=== PATIENT | male | born 1935 | race Caucasian/White ===

== ENCOUNTER 2016-12-09 16:28 | Inpatient (IN) | payer OTHER ==
[~2016-12-09] VITALS: Ht 165.1 cm; Wt 69.0 kg
--- NOTE | ~2016-12-09 | EKG ---
[address] [address] ELECTROCARDIOGRAM REPORT Name: TODD TINOCO Room #: 445-P ADM IN M.R.#: [id number] Admission: 12/09/16 Attend Phys: Tomeka West Discharge: Date of : 39 Report #: [id number] THIS REPORT FOR: //name// [facility] Test Date: 2016-12-10 Test Time: 06:36:24 Pat Name: TODD TINOCO Department: Room: 445 P Gender: M Fuse Cutter: jensen : 1935 Requested By: Yara Martinez Order Number: [id number] MD: Quinton Khoury Measurements Intervals [place] Rate: 88 P: -24 ID: [id number] QRS: 76 QRSD: 105 T: 69 QT: 335 QTc: 406 Interpretive Statements Sinus rhythm with frequent PACs. Compared to ECG 11/18/2016 06:04:40 No significant changes Electronically Signed On 12-10-2016 15:57:54 CDT by Quinton Khoury [email or web address] <ELECTRONICALLY SIGNED> By: Quinton Khoury MD 12/10/16 1557 5 5 Quinton Khoury MD /PAMELA
--- NOTE | ~2016-12-09 | HC ---
[facility] [address] [place] [place] [address] CONSULTATION Name: TODD TINOCO Room #: 445-P [facility] IN M.R.#: [id number] Admission: 12/09/16 Attend Phys: Tomeka West Discharge: Date of : 39 Report #: [id number] THIS REPORT FOR: //name// CC: Tomeka Hinojosa DATE OF SERVICE: 12/10/2016 REASON FOR CONSULTATION: Acute kidney injury, hyperkalemia. HISTORY OF PRESENT ILLNESS: This is a 81-year-old male who has had several very lengthy hospitalizations here at [facility]. The first was in 07/2016 and 08/2016. During that time, the patient had with a complicated abdominal surgery, developed acute kidney injury, required dialysis for a period of time. He eventually improved from that. He was back in the hospital in early 11/2016, about a month ago. During that time, he had worsening respiratory status. During this time last year, he had an ileostomy placed. He has currently had liquid output from that. He has had a hard time keeping up with food and fluid intake. He says his appetite has been poor. He had a PEG tube in place, but that has not been used. He has not noticed peripheral edema. He voids urine normally, but says his urine output is way down, voiding only occasionally, not nearly his normal amount. He still has a tracheostomy in place from his July hospitalizations. His other complain is of cough and mucus production around that ileostomy. Laboratory review shows on admission, sodium 128, potassium 5.5, BUN 36, creatinine 2.5, bicarbonate 16, white count 11.2, hemoglobin 7.5, hematocrit 22.9, platelets 311,000. MEDICATIONS ON ADMISSION: Aspirin 81 mg daily, Pulmicort, Tums, citalopram 20 mg daily p.r.n., Aranesp 100 mcg weekly to generate more blood, Pepcid 20 mg b.i.d., iron 325 mg daily, finasteride 5 mg daily, folic acid 1 mg daily, hydrocodone p.r.n., insulin, DuoNeb inhaler, levothyroxine 0.112 mg daily, p.r.n. loperamide, loratadine 10 mg daily, midodrine 10 mg t.i.d., Asmanex inhaler, nitrofurantoin 100 mg b.i.d. recently started for urinary tract infection, pantoprazole 40 mg daily (I am not sure that he is on 2 proton pump inhibitors) Requip 0.25 mg daily, sulfasalazine 1 g t.i.d., tamsulosin 0.4 mg b.i.d., tramadol p.r.n. ALLERGIES: SIMVASTATIN, AMBIEN. FAMILY HISTORY: Noncontributory. SOCIAL HISTORY: The patient has been staying in a rehab center down in [place], [place] since he was discharged from here in November. He is and accompanied by his at this time. They live in [place]. Son is also [facility] [address] [place] [address] CONSULTATION Name: TODD TINOCO Room #: 445-P [facility] IN M.R.#: [id number] Admission: 12/09/16 Attend Phys: Tomeka West Discharge: Date of : 39 Report #: [id number] present at this time. REVIEW OF SYSTEMS: Basically is per the history of present illness. Low intake generally. He thinks his weight has been stable. He has dyspnea, still has cough with some sputum production, although has been mostly clear. He is unaware of fevers, chills or sweats. He has not noticed any edema. Again, his urine output has been down. PHYSICAL EXAMINATION: GENERAL: Chronically ill-appearing male. He is sitting up in a chair at this time. VITAL SIGNS: Blood pressure 101/59, heart rate 80, temperature 36.6, oxygen saturation 95%. HEENT: Shows pupils are equal and reactive. Sclerae nonicteric. Oral mucosa is dry. NECK: Tracheostomy is in place but capped. CHEST: Shows decreased breath sounds bilaterally in the bases. No rales or wheezes. HEART: Has a regular rate and rhythm with a grade 2 systolic murmur. ABDOMEN: Has a few bowel sounds present. Soft, generally nontender. EXTREMITIES: He has an ileostomy in place draining quite a large amount of clear brown liquid. He shows no peripheral edema. There has been significant muscle atrophy developed. LABORATORY: As noted above. ASSESSMENT: 1. Acute kidney injury. This is slightly worse than it had been during his most recent hospitalization. By the time he left, he was down to creatinine 1.5. He had been high enough to need dialysis during his prior hospitalizations, but again, he recovered rather remarkably from that. He no doubt is volume deplete. We will bump his IV fluids up watching his volume status. No intention of dialyzing him at this time. 2. Hyperkalemia, correcting. Again, I will do better with saline infusions. 3. Hyponatremia. He will also respond to the normal saline with correction of that. 4. Hypomagnesemia, replacing. 5. Recent suggest of urinary tract infection. He has been on nitrofurantoin. We will recheck. 6. Chronic respiratory failure. Actually breathing fairly well, question if we can get the tracheostomy out. 7. Ileostomy with high output. He may need further treatment for that to slow that down. In the meantime, we will give more fluids IV. 8. Metabolic acidosis with low anion gap. He could use low bicarbonate to help replace since he has his high ostomy output. We will get him . [facility] [address] [place] [address] CONSULTATION Name: TODD TINOCO Room #: 445-P [facility] IN Sandra#: [id number] Admission: 12/09/16 Attend Phys: Tomeka West Discharge: Date of : 37 Report #: [id number] PLAN: 1. Increase IV normal saline to 125 mL per hour. 2. Check urine studies. 3. Repeat labs in the morning. 4. administration of a bicarbonate which we will give orally. 5. We will follow along the care of this pleasant patient. <ELECTRONICALLY SIGNED> By: Rakesh Hutson MD 12/11/16 0842 1253 [id number] Rakesh Huston MD /nt
[~2016-12-09 16:28] MED LIST: ALLOPURINOL 10100 M1 PO; ANTACID650 MG PO; ARANESP 10100 MCG/0. SQ; ASPIR 8181 M1 PO; AZACTAM 1 GM VIA1 G1 IVPB; CALCIUM 250+D1 EACH PO; DUONEB 2.5-0.5 M3 ML INH; FLOMAX0.4 MG PO; FOLIC ACID1 MG PO; HUMALOG100 UNIT/1 SUBQ; HUMALOG100 UNIT/2 SQ; HYDROCODON-ACE1 EAC7 PO; ISOSORBIDE MONO30 M1 PO; LANTUS100 UNIT/M SUBQ; LASIX 20 MG TAB20 MG PO; LEVOTHYROXIN0.112 M1 PO; LOPRESSOR25 PO; METRONIDAZOLE500 M5 IVPB; MIDODRINE HCL 55 M1 PO; MULTIVITAMINS1 EAC7 PO; NEURONTIN 300300 M1 PO; NOVAFERRUM 5050 MG PO; NOVOLIN N100 UNIT/3 SUBQ; ONDANSETRON HCL4 M2 PO; PEPCID20 MG PO; PERIDEX 0.12%473 M1 MUCOUS MEM; POLY-IRON 1501 EACH PO; PROSCAR 5MG TABL5 MG PO; PROTONIX40 M1 PO; PULMICORT0.5 MG/21 INH; REQUIP 0.25 M0.25 MG PO; SEROQUEL 25 MG25 M1 PER TUBE; SULFAZINE500 M1 PO; SUPER B COMPLE150 MG PO; TUMS PO; TYLENOL325 MG PO; UROCIT-K10 ME1 PO; VANCO 1 GR1 GM/250 M IVPB; VISTARIL 25 MG25 M1 PO; VITAMIN B-1100 M1 PO; VITAMIN D250000 UNIT PO; ZESTRIL2.5 MG PO
[2016-12-09 19:10] VITALS: BP 127/68
[2016-12-09] MEDS ORDERED: CELEXA20 MG PO (20:17)
[2016-12-09] MEDS ORDERED: IRON325 PO (20:18)
[2016-12-09] MEDS ORDERED: PEPCID20 MG PO (20:18)
[2016-12-09] MEDS ORDERED: LOPERAMIDE 2 MG2 M1 PO (20:20)
[2016-12-09] MEDS ORDERED: CLARITIN10 MG PO (20:21)
[2016-12-09] MEDS ORDERED: ASMANEX220 MC1 INH (20:22)
[2016-12-09] MEDS ORDERED: NITROFURANTOIN100 MG PO (20:22)
[2016-12-09] MEDS ORDERED: HUMALOG100 UNIT/2 SQ ×2 (20:24)
[2016-12-09] MEDS ORDERED: POLY-IRON 1501 EACH PO (20:28)
[2016-12-09] MEDS ORDERED: TRAMADOL 50 MG50 MG PO (20:30)
[2016-12-09] MEDS ORDERED: TUSSIN CF COUG118 M2 PO (20:30)
[2016-12-09 20:48] LABS: HEMATOCRIT 22.9 % (42.0-52.0); HEMOGLOBIN 7.5 gm/dL (14.0-18.0); MCH 28.8 pg (26.0-34.0); MCHC 32.8 g/dL (28.0-37.0); MCV 87.6 fL (80.0-100.0); PLATELET COUNT 311 thou/uL (150-400); RBC 2.61 mil/uL (4.50-6.00); RDW 19.6 % (10.5-14.5); WBC 11.2 thou/uL (4.0-11.0)
[2016-12-09 20:49] LABS: MANUAL DIFF YES
[2016-12-09 20:58] LABS: ANION GAP 9 mmol/L (7-16); BUN 36 mg/dL (7-18); CALCIUM 8.1 mg/dL (8.5-10.1); CHLORIDE 103 mmol/L (98-107); CO2 16 mmol/L (21-32); CREATININE 2.5 mg/dL (0.6-1.3); GLUCOSE 108 mg/dL (70-99); POTASSIUM 5.5 mmol/L (3.5-5.1); SODIUM 128 mmol/L (136-145)
[2016-12-09 21:05] LABS: ABSOLUTE NEUTROPHILS 9.1 thou/uL (1.4-8.2); ANISOCYTOSIS 1+; TOTAL CELL COUNT 100
[2016-12-09 21:12] LABS: ALBUMIN 2.5 g/dL (3.4-5.0); ALKALINE PHOSPHATASE 80 U/L (46-116); NT-PRO BRAIN NAT PEPTIDE 4950 pg/mL (<300); SGOT 12 U/L (15-37); SGPT 9 U/L (30-65); TOTAL BILIRUBIN 0.4 mg/dL (<0.1-1.0); TOTAL PROTEIN 6.7 g/dL (6.4-8.2); TROPONIN-I < 0.04 ng/mL (<0.04-0.07)
[2016-12-10 00:15] VITALS: BP 130/64
[2016-12-10] MEDS ORDERED: ARANESP 10100 MCG/0. IJ (01:25)
[2016-12-10 05:09] VITALS: BP 114/63
[2016-12-10 05:43] LABS: HEMATOCRIT 22.1 % (42.0-52.0); HEMOGLOBIN 7.1 gm/dL (14.0-18.0); MCH 28.2 pg (26.0-34.0); MCHC 32.1 g/dL (28.0-37.0); MCV 87.9 fL (80.0-100.0); PLATELET COUNT 287 thou/uL (150-400); RBC 2.51 mil/uL (4.50-6.00); RDW 19.8 % (10.5-14.5); WBC 11.5 thou/uL (4.0-11.0)
[2016-12-10 05:58] LABS: MANUAL DIFF YES
[2016-12-10 06:01] LABS: ALBUMIN 2.2 g/dL (3.4-5.0); CREATININE 2.7 mg/dL (0.6-1.3); INR 1.2; POTASSIUM 5.2 mmol/L (3.5-5.1); PROTIME 12.4 Seconds (9.3-11.4)
[2016-12-10 06:33] LABS: TOTAL BILIRUBIN 0.4 mg/dL (<0.1-1.0); TOTAL PROTEIN 6.5 g/dL (6.4-8.2)
[2016-12-10 08:37] LABS: ABSOLUTE NEUTROPHILS 10.1 thou/uL (1.4-8.2); ANISOCYTOSIS 2+; PLATELET ESTIMATE NORMAL; TOTAL CELL COUNT 100
[2016-12-10 08:38] LABS: MICROCYTES 1+; POLYCHROMASIA 1+
[2016-12-10 08:56] VITALS: BP 107/60
[2016-12-10 11:24] LABS: % SATURATION 15 % (20-39); IRON 24 ug/dL (65-175); TIBC 162 ug/dL (250-450); UIBC 138 ug/dL
[2016-12-10 12:31] VITALS: BP 101/59
[2016-12-10 15:03] LABS: URINE BILIRUBIN NEGATIVE (Negative); URINE BLOOD TRACE (Negative); URINE COLOR YELLOW; URINE GLUCOSE-RANDOM* NEGATIVE (Negative); URINE KETONES NEGATIVE (Negative); URINE LEUKOCYTES-REFLEX TRACE (Negative); URINE PROTEIN (DIPSTICK) 2+ (Negative); URINE SPECIFIC GRAVITY 1.025 (1.003-1.035); URINE UROBILINOGEN 0.2 E.U./dl (0.2-1.0)
[2016-12-10 15:10] LABS: CASTS None Seen /LPF (None Seen); CRYSTALS None Seen /LPF (None Seen); SQUAMOUS None Seen /LPF (0-3); URINE RBC 0-2 Rare /HPF (0-2); URINE WBC-REFLEX 0-5 Rare /HPF (0-5)
[2016-12-10 16:54] VITALS: BP 111/62
[2016-12-10 20:05] VITALS: BP 129/66
[2016-12-11 00:10] LABS: URINE CREATININE-RANDOM* 156.3 mg/dL (Not Estab.)
[2016-12-11 04:05] VITALS: BP 110/64
[2016-12-11 05:24] LABS: WBC 12.6 thou/uL (4.0-11.0)
[2016-12-11 05:26] LABS: HEMATOCRIT 21.7 % (42.0-52.0); MCH 28.2 pg (26.0-34.0); MCHC 31.9 g/dL (28.0-37.0); MCV 88.6 fL (80.0-100.0); RBC 2.45 mil/uL (4.50-6.00); RDW 20.5 % (10.5-14.5)
[2016-12-11 05:37] LABS: HEMOGLOBIN 6.9 gm/dL (14.0-18.0)
[2016-12-11 06:09] LABS: ALBUMIN 2.2 g/dL (3.4-5.0); CREATININE 2.7 mg/dL (0.7-1.3); MAGNESIUM 2.2 mg/dL (1.8-2.4); POTASSIUM 5.2 mmol/L (3.5-5.1); TOTAL BILIRUBIN 0.3 mg/dL (<0.1-1.0); TOTAL PROTEIN 6.3 g/dL (6.4-8.2)
[2016-12-11 08:37] VITALS: BP 121/68
[2016-12-11 08:48] VITALS: BP 117/66; BP 122/79
[2016-12-11 16:25] VITALS: BP 102/60
[2016-12-11 19:38] VITALS: BP 113/75
[2016-12-12 04:45] VITALS: BP 113/64
[2016-12-12 06:03] LABS: HEMATOCRIT 23.6 % (42.0-52.0); HEMOGLOBIN 7.7 gm/dL (14.0-18.0); MCH 28.4 pg (26.0-34.0); MCHC 32.6 g/dL (28.0-37.0); MCV 87.1 fL (80.0-100.0); RBC 2.71 mil/uL (4.50-6.00); RDW 19.8 % (10.5-14.5); WBC 10.5 thou/uL (4.0-11.0)
[2016-12-12 06:17] LABS: ALBUMIN 2.1 g/dL (3.4-5.0); CALCIUM 8.2 mg/dL (8.5-10.1); CREATININE 2.4 mg/dL (0.7-1.3); PHOSPHORUS 3.7 mg/dL (2.5-4.9); POTASSIUM 4.9 mmol/L (3.5-5.1)
[2016-12-12 08:00] VITALS: BP 125/69
[2016-12-12] MEDS ORDERED: CEFTIN 250250 MG/52 PO (10:04)
[2016-12-12] MEDS ORDERED: ANTACID650 MG PO (11:10)
[2016-12-12 12:00] VITALS: BP 121/76
[2016-12-12 13:43] VITALS: BP 123/52
== END 2016-12-12 14:19 | DRG 689 ==
LOC: 4S 16:28
PROVIDERS: Hospitalist; Internal Medicine Nephrology; Nurse Practitioner
PROC: 30233N1 Transfusion of Nonautologous Red Blood Cells into Peripheral Vein, Percutaneous Approach (ICD-10-PCS; principal; 2016-12-11)
DX: N30.00 Acute cystitis without hematuria (principal); E43 Unspecified severe protein-calorie malnutrition; E87.1 Hypo-osmolality and hyponatremia; K50.90 Crohn's disease, unspecified, without complications; N17.9 Acute kidney failure, unspecified; R04.2 Hemoptysis; J96.10 Chronic respiratory failure, unspecified whether with hypoxia or hypercapnia; E87.2 Acidosis; E11.9 Type 2 diabetes mellitus without complications; I48.91 Unspecified atrial fibrillation; E86.0 Dehydration; I25.10 Atherosclerotic heart disease of native coronary artery without angina pectoris; G47.33 Obstructive sleep apnea (adult) (pediatric); M10.9 Gout, unspecified; I95.9 Hypotension, unspecified; E87.5 Hyperkalemia; D63.8 Anemia in other chronic diseases classified elsewhere; R19.7 Diarrhea, unspecified; N40.0 Benign prostatic hyperplasia without lower urinary tract symptoms; I11.0 Hypertensive heart disease with heart failure; Z96.89 Presence of other specified functional implants; I50.9 Heart failure, unspecified; E83.42 Hypomagnesemia; E03.9 Hypothyroidism, unspecified; Z90.49 Acquired absence of other specified parts of digestive tract; Z93.2 Ileostomy status; Z98.42 Cataract extraction status, left eye; Z98.41 Cataract extraction status, right eye; Z88.8 Allergy status to other drugs, medicaments and biological substances; Z95.5 Presence of coronary angioplasty implant and graft; Z79.4 Long term (current) use of insulin; I25.2 Old myocardial infarction; Z87.891 Personal history of nicotine dependence; Z68.25 Body mass index [BMI] 25.0-25.9, adult; Z82.49 Family history of ischemic heart disease and other diseases of the circulatory system; Z93.1 Gastrostomy status
CPT/HCPCS: 10100

== ENCOUNTER 2017-04-05 03:28 | Inpatient (IN) | payer OTHER ==
[~2017-04-05] VITALS: Ht 165.1 cm; Wt 68.5 kg
--- NOTE | ~2017-04-05 | HC ---
[facility] [address]ardo [address] [place] [address] CONSULTATION Name: TODD TINOCO Room #: 421-P [facility] IN .R.#: [id number] Admission: 04/05/17 Attend Phys: Usman Perez MD Discharge: Date of : 37 Report #: [id number] THIS REPORT FOR: //name// CC: Paulino Garner DATE OF SERVICE: 04/05/2017 REFERRING PROVIDER: Usman Perez M.D. REASON FOR CONSULT: Abdominal wall pain. HISTORY OF PRESENT ILLNESS: The patient is a 81-year-old male who is well known to me, as he is now 8 months status post complex abdominal wall reconstruction for multiple incarcerated recurrent incisional ventral hernias and a prolapsed ileostomy. Ultimately, the patient had a rough postoperative course, but has done quite well since that time, although he has been admitted here on 1 prior episode for excoriation around his ileostomy due to poor care at an outside facility. The patient has had home health care for the past 5 weeks and as he has had oozing and bleeding around his ileostomy appliance, he presented back to the hospital for admission and evaluation. I am therefore asked to evaluate once again. PAST MEDICAL HISTORY: Diabetes mellitus, atrial fibrillation, coronary artery disease, obstructive sleep apnea, ulcerative colitis, status post total proctocolectomy with end ileostomy, hypertension, gout, BPH, anemia, CHF, and hypothyroidism. HOME MEDICATIONS: Ceftin, DuoNebs, Vistaril, Pulmicort, Protonix, Flomax, Celexa, Pepcid, iron, Imodium, Claritin, mometasone, insulin, iron, tramadol, guaifenesin, darbepoetin dirk, sodium bicarbonate, aspirin, Proscar, midodrine, Zofran, Requip, sulfasalazine, vitamin B1, Tums, Synthroid, and Tylenol. ALLERGIES: ADHESIVE TAPE, AMBIEN, AND ZOCOR. FAMILY HISTORY: Reviewed and noncontributory. SOCIAL HISTORY: The patient does not currently utilize tobacco, alcohol or illicit drugs. REVIEW OF SYSTEMS: GENERAL: The patient denies nocturnal fevers or chills. HEENT: No change in vision, change in hearing. NECK: No swelling or difficulty swallowing. HEART: No chest pain or palpitations. [address] [address] CONSULTATION Name: TODD TINOCO Room #: 421-P [facility] IN M.R.#: [id number] Admission: 04/05/17 Attend Phys: Usman Perez MD Discharge: Date of : 37 Report #: [id number] LUNGS: No cough or shortness of breath. ABDOMEN: No nausea, no vomiting. GENITOURINARY: No dysuria or hematuria. ENDOCRINE: No polyuria, polydipsia. HEMATOLOGIC: No history of bleeding or easy bruising. EXTREMITIES: No history weakness or limited range of motion. NEUROLOGIC: No history of syncope or near syncopal episodes. SKIN AND INTEGUMENT: No history of abnormal lesions or moles. PSYCHIATRIC: No history of anxiety or depression. PHYSICAL EXAMINATION: VITAL SIGNS: Temperature 98.7, pulse 72, respirations 16, blood pressure 116/69. He stands 5 feet 5 inches tall and weighs 151 pounds now. GENERAL: Alert and oriented, in no acute distress. HEENT: Normocephalic, atraumatic. Pupils equal, round, reactive to light. NECK: Supple, without lymphadenopathy. HEART: Regular rate and rhythm. LUNGS: Clear to auscultation bilaterally. ABDOMEN: Soft, nontender, nondistended. Ileostomy is pink, patent and functional with no palpable evidence of recurrent herniation. He does have marked excoriation around his ileostomy without evidence of cellulitis or abscess formation. GENITOURINARY: Normal external male genitalia. EXTREMITIES: No clubbing, cyanosis or edema. Cranial nerves 2-12 are grossly intact. PSYCHIATRIC: Normal mood and affect. SKIN AND INTEGUMENT: No other abnormal lesions or moles. LABORATORY AND X-RAY DATA: CBC shows white blood cell count of 9.7 thousand, hemoglobin 7.5, platelets 269,000. Creatinine is 3.0. ASSESSMENT AND PLAN: A 81-year-old male with multiple medical problems who is now 8 months status post complex abdominal wall reconstruction with revision of his end ileostomy for prolapsing who has an intact and functioning ostomy; however, does have marked excoriation to the surrounding skin due to poor peristomal care. The patient has been admitted. We will ask the ostomy nurse to evaluate and Dr. Jarquin from the wound care service has also been asked to evaluate. At this time, the patient does not have any overt general surgical issues and as such, I will follow peripherally and assist as needed moving forward. [facility] [address] [place] [address] CONSULTATION Name: TODD TINOCO Room #: 421-P ADM IN M.R.#: [id number] Admission: 04/05/17 Attend Phys: Usman Perez MD Discharge: Date of : 37 Report #: [id number] I sincerely appreciate this consult. I will follow closely and leave any further recommendations in the patient's chart as appropriate when needed. <ELECTRONICALLY SIGNED> By: David Garner MD, FACS 04/08/17 0748 1216 1324 David Garner MD, FACS /nt
--- NOTE | ~2017-04-05 | HC ---
[facility] [address] [place] [address] CONSULTATION Name: TODD TINOCO Room #: 421-P [facility] IN ..#: [id number] Admission: 04/05/17 Attend Phys: Usman Perez MD Discharge: Date of : 37 Report #: [id number] THIS REPORT FOR: //name// CC: Dawood Garner HISTORY OF PRESENT ILLNESS: The patient is a very pleasant 81-year-old male who I have been asked to see for further evaluation of his profound anemia. He had a complicated medical history most recently with abdominal wall surgery and a prolonged hospital course. In 2008, he had a total proctocolectomy; however, some rectum remains. He presents with some mild rectal bleeding with mucusy blood, one to several times daily and occasional intermittent melena from his stoma which had occurred significantly prior to his hospitalization 2 days ago. He denies other GI symptoms. He was admitted for significantly low hemoglobin. PAST MEDICAL HISTORY: Notable for diabetes, atrial fibrillation, coronary artery disease, obstructive sleep apnea, ulcerative colitis, status post total proctocolectomy with end ileostomy, hypertension, gout, BPH, chronic anemia, heart failure, hypothyroidism, renal insufficiency. MEDICATIONS: His home medications are documented. ALLERGIES: He is allergic to ADHESIVE TAPE, AMBIEN, and ZOCOR. FAMILY HISTORY AND SOCIAL HISTORY: Noncontributory. REVIEW OF SYSTEMS: Negative for weight loss, weakness or fatigue. He denies head, eyes, ears, nose or throat complaints. He denies chest pain, chest pressure, cough, shortness of breath, wheezing, genitourinary, musculoskeletal or neuropsychiatric complaints otherwise. PHYSICAL EXAMINATION: VITAL SIGNS: Afebrile. Vital signs stable. HEENT: Nonicteric. NECK: No JVD, thyromegaly or bruits. CARDIOVASCULAR: Regular. LUNGS: Clear. ABDOMEN: Soft, nondistended, nontender, normoactive bowel sounds. No hepatosplenomegaly. No stigmata of chronic liver disease. His stoma and his gastrostomy tube are noted. EXTREMITIES: Deferred. NEUROLOGIC: Deferred. RECTAL: Deferred. [facility] [address] [place] [address] CONSULTATION Name: TODD TINOCO Room #: 421-P [facility] IN [facility].#: [id number] Admission: 04/05/17 Attend Phys: Usman Perez MD Discharge: Date of : 37 Report #: [id number] LABORATORY DATA: Pertinent labs were reviewed including hemoglobin 6.9, white count 7.5, RDW 17.4, MCV 90. INR 1.2. Chemistry notable for venous bicarbonate 15, BUN 47, creatinine 2.5, glucose 163, iron percent 10. Liver tests normal. IMAGING: No recent imaging studies. ASSESSMENT AND PLAN: In summary, the patient presents with increasing anemia and melena per ileostomy. I do not have a prior record of recent upper endoscopy. We will schedule him for an EGD tomorrow for exclusion of peptic ulcer disease or PEG-related complications causing anemia and melena. Again, I appreciate the opportunity to participate in his care. <ELECTRONICALLY SIGNED> By: Dawood Castro MD 04/08/17 1040 1248 05 Carson Billings MD /nt
--- NOTE | ~2017-04-05 | HC ---
[facility] [address] [address] CONSULTATION Name: DENEEN TINOCO Room #: 421-P [facility] IN ..#: [id number] Admission: 04/05/17 Attend Phys: Usman Perez MD Discharge: Date of : 37 Report #: [id number] THIS REPORT FOR: //name// CC: Paulino Garner DATE OF SERVICE: 04/05/2017 CHIEF COMPLAINT: Peristomal excoriation and cellulitis. HISTORY OF PRESENT ILLNESS: This is a 81-year-old white male who approximately 8 months ago had a complex abdominal wall reconstruction for multiple incarcerated hernias and a prolapsed ileostomy. The patient states that since the surgery, he has had issues with the ostomy draining. The patient states that in the past 2-3 days he has had significant amount of excoriation, irritation and pain, which prompted him to come to the Emergency Department for evaluation. I was asked to evaluate the patient for his peristomal irritation. The patient denies any other associated wounds at this time. PAST MEDICAL HISTORY: Significant for diabetes, atrial fibrillation, coronary artery disease, obstructive sleep apnea, ulcerative colitis, status post total proctocolectomy with end ileostomy, hypertension, anemia, congestive heart failure, hypothyroidism. CURRENT MEDICATIONS: Multiple, I reviewed the patient's medication list. DRUG ALLERGIES: INCLUDE ADHESIVE TAPE, AMBIEN AND ZOCOR. FAMILY HISTORY: Not pertinent to current medical condition. SOCIAL HISTORY: The patient does not smoke or drink alcohol. REVIEW OF SYSTEMS: CONSTITUTIONAL: The patient denies fevers or chills. NEUROLOGIC: The patient denies numbness, tingling, weakness in arms or legs. EYES: No complaints. ENT: No complaints. CARDIAC: The patient denies chest pain, palpitations, peripheral edema. RESPIRATORY: The patient denies shortness of breath, cough, wheezes. GASTROINTESTINAL: The patient was painted around his peristomal region, but no actual abdominal pain. Otherwise, the patient denies nausea, vomiting, but does complain of deneen red blood per his rectum, which he states has been going on for several years. MUSCULOSKELETAL: No complaints. SKIN: There is a peristomal excoriation, but no actual open ulcerations. [facility] [address] [place] [address] CONSULTATION Name: DENEEN TINOCO Room #: 421-P [facility] IN .R.#: [id number] Admission: 04/05/17 Attend Phys: Usman Perez MD Discharge: Date of : 37 Report #: [id number] PHYSICAL EXAMINATION: VITAL SIGNS: Stable. The patient is afebrile. GENERAL: This is alert and oriented x3, pleasant elderly male who is in no acute distress. HEENT: Normocephalic, atraumatic. Mucous membranes are dry. Pupils are round. Sclerae white. NECK: Shows no JVD and is otherwise supple. LUNGS: Clear. HEART: Regular, without murmur. ABDOMEN: Soft and nontender except for right around the area of the left lower quadrant ileostomy, which excoriated and very flat at the surface of the abdominal wall. There are no actual open ulcerations, but it is tender and warm around the site as well. EXTREMITIES: The patient moves all extremities without difficulty. Bilateral heels are intact. NEUROLOGIC: Cranial nerves 2-12 are grossly intact. Motor and sensory grossly intact. RECTAL EXAM: Performed by myself and was very difficult secondary to pain for the patient, but I did not feel any obvious masses and there was no deneen blood noted. LABORATORY VALUES: White count 9.7, hemoglobin 7.5, albumin 2 months ago was 2.1. IMPRESSION: 1. Peristomal excoriation with underlying cellulitis. 2. History of ulcerative colitis status post total proctocolectomy. 3. Protein-calorie malnutrition - severe with an albumin of 2.1. 4. Generalized debility. PLAN: At this time, we painted the excoriated area with Refugio gel to help coat the excoriated tissue and allow for ostomy appliance to be better applied and hopefully would stick without having further drainage; ____, ostomy nurse, is being consulted and is going to see the patient shortly for further evaluation. The patient is currently on IV antibiotics as well. We will make sure we maximize the patient's oral supplementation of protein for healing. We will continue to follow the patient while he is here. I will also spoke to Dr. Garner about the patient. <ELECTRONICALLY SIGNED> By: Arjun Jarquin MD 04/10/17 0734 1441 1527 Arjun Jarquin MD /nt
--- NOTE | ~2017-04-05 | HC ---
[facility] [address] [place] [address] CONSULTATION Name: TODD TINOCO Room #: 421-P ADM IN M.R.#: [id number] Admission: 04/05/17 Attend Phys: Usman Perez MD Discharge: Date of : 39 Report #: [id number] THIS REPORT FOR: //name// CC: Darwin Oro MD REASON FOR CONSULTATION: Anemia. 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 At that time, he had a history CKD and iron deficiency. He received IV iron and also was begun on darbepoetin 100 mcg per week. Since he has been here, he said he has required transfusions almost ever since then and more recently. He also states that he is having bleeding from around his ostomy site ____ and also some blood and blood in the stool from his rectum. He has required transfusion about one a week or one every 2 weeks here recently. He came in today because of worsening difficulties with his bleeding and also the bowel difficulty. The patient denies headache more than usual, does have occasional. No mouth sores. No swallowing troubles. No more short of breath than usual. No new cough. No known really new abdominal pain, though he does have some discomfort. No new arm or leg swelling, though he does have some chronic edema. He does have some urinary difficulties, but not new. PAST MEDICAL HISTORY: Past history is notable for the history of the iron deficiency, was thought mostly related to CKD, receiving darbepoetin 100 mcg, which he states he has been doing regularly. He also has a history of ulcerative colitis and Crohn's disease for which GI is evaluating him. Also a history of diabetes mellitus, atrial fibrillation, coronary artery disease, obstructive sleep apnea, BPH, hypertension, gout, history of CHF with an EF of 40% in the fall, and hypothyroidism. PAST SURGICAL HISTORY: He has a history of hernia surgery, ventral wall ____ hernia repair and ostomy. He has had bilateral rotator cuff surgeries and cataract surgery. He also had coronary artery disease stents in the past and bilateral carpal tunnel surgery in the past. ALLERGIES: Reports to AMBIEN causing hallucinations and ZOCOR, leg cramps. 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 He also has a female partner at home, not , but is his significant other. Stopped smoking 19 years ago. No alcohol, no street drugs. FAMILY HISTORY: Noncontributory. LABORATORY DATA: Lab results here show that his BUN was 37 and creatinine was 3, it is now 2.5. This is baseline for the patient since December. Transaminases and calcium are normal. Liver functions not done since December. Albumin 2.8. Iron 25 at this time, TIBC 261 and percent saturation 10, note that back in December and November, it was 15 and 13 respectively. Coags not checked this visit. White count 8.6. Hemoglobin on admission 7.5, with hydration 6.9 and after transfusion today 9. MCV during this time on admission was 88, which has been the same over the last 7 months. RDW really unchanged at 17.2 for a brief while, up in December at 20.5. Platelets 233. Differential nonacute with 75% segmented neutrophils, 12% lymphocytes, and 13% monocytes. ANC of 7.3 several days ago. Retic count pending, in the past had not been checked. Ferritin recently 61. B12 was 41 back in November. We will also check folic acid; I do not see it. ____ not checked as the patient has been on replacement. MEDICATIONS: Here in the hospital include the darbepoetin, which will be increased; finasteride 5 mg daily; aspirin 81 mg daily; tamsulosin 0.8 daily; levothyroxine 112 mcg daily; pantoprazole 40 daily; midodrine 10 mg several times, I think, t.i.d.; famotidine 10 b.i.d.; ropinirole 0.25 at bedtime; citalopram 20 mg at bedtime; IV fluids; and morphine p.r.n. PHYSICAL EXAMINATION: GENERAL: The patient appears his stated age. VITAL SIGNS: Height is 5 feet 5, 165 cm; 151 pounds, 68.5 kilograms. Blood pressure 112/67, O2 saturation 97%, respirations 18, pulse 54, and temperature afebrile at 98.1. PSYCHIATRIC: Mood: The patient is alert and pleasant and appears to be a reliable historian and does not appear in mental distress. NEUROLOGIC: The patient's face is symmetric. He is moving all extremities. His speech pattern and thought process appear to be normal. HEENT: Oropharynx is clear, without any injection or masses. LUNGS: Have symmetric, unlabored expansion without rhonchi or rales. HEART: Appears regular rate. LYMPHATICS: No enlarged lymph nodes in the supraclavicular, cervical, axillary, or inguinal region. ABDOMEN: Slightly obese. Ostomy central, site not examined. No masses, mildly tender, but not unusually so. EXTREMITIES: Without clubbing or cyanosis. ASSESSMENT AND PLAN: 1. Anemia. 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 We will check retic count. We will increase Aranesp dosage. Note, in talking to the pharmacist, the equivalent dose for 100 mcg maybe between 30 and 90 units weekly. He is on 3 times a week, so it would have been a 30 for a 25% increase. We will go to 40,000 units 3 times a week. Also, we will replace the iron. Did discuss the possibly a bone marrow biopsy, which I would consider in 6-8 weeks if we do not see any increase in his MCV or his retic count or improvement in his hemoglobin. Continue to transfuse to keep hemoglobin above 10. 2. Blood loss. Gastroenterology is taking a look at both ostomy and rectal to look for source of bleeding, which is making it hard for the patient to ____. 3. Chronic kidney disease, stable creatinine. Defer to renal. 4. Diabetes mellitus. Continues monitoring per others. 5. History of ulcerative colitis and Crohn's. Defer to GI. No plans for endoscopy. 6. Atrial fibrillation. Meds per others. 7. Coronary artery disease with stents. Meds per others. 8. Obstructive sleep apnea. Management per others. 9. History of benign prostatic hypertrophy. Meds per others. 10. Hypothyroid, replace. 11. History of congestive heart failure. Meds per others. We will follow with you. <ELECTRONICALLY SIGNED> By: Prateek Saleh MD 04/10/17 [id number] Prateek Saleh MD /nt
[~2017-04-05 03:28] MED LIST changes: +ARANESP 10100 MCG/0. IJ; +ASMANEX220 MC1 INH; +CEFTIN 250250 MG/52 PO; +CELEXA20 MG PO; +CLARITIN10 MG PO; +IRON325 PO; +LOPERAMIDE 2 MG2 M1 PO; +NITROFURANTOIN100 MG PO; +TRAMADOL 50 MG50 MG PO; +TUSSIN CF COUG118 M2 PO
[2017-04-05 03:33] VITALS: BP 109/62
[2017-04-05 04:50] LABS: HEMATOCRIT 22.5 % (42.0-52.0); HEMOGLOBIN 7.5 gm/dL (14.0-18.0); MCH 29.6 pg (26.0-34.0); MCHC 33.4 g/dL (28.0-37.0); MCV 88.7 fL (80.0-100.0); PLATELET COUNT 269 thou/uL (150-400); RBC 2.53 mil/uL (4.50-6.00); RDW 17.3 % (10.5-14.5); WBC 9.7 thou/uL (4.0-11.0)
[2017-04-05 04:55] LABS: CALCIUM 8.6 mg/dL (8.5-10.1); POTASSIUM 5.7 mmol/L (3.5-5.1)
[2017-04-05 05:07] LABS: MANUAL DIFF YES
[2017-04-05] MEDS ORDERED: HYDROCODONE-AP1 EAC6 PO (05:56)
[2017-04-05 05:59] VITALS: BP 120/61
[2017-04-05 07:22] LABS: ABSOLUTE NEUTROPHILS 7.3 thou/uL (1.4-8.2); ANISOCYTOSIS 1+; TOTAL CELL COUNT 100
[2017-04-05 07:27] VITALS: BP 116/69
[2017-04-05 16:37] VITALS: BP 125/73
[2017-04-05 19:46] VITALS: BP 101/63
[2017-04-06 03:00] VITALS: BP 115/65
[2017-04-06 08:23] VITALS: BP 116/67
[2017-04-06 16:33] VITALS: BP 111/70
[2017-04-06 19:15] VITALS: BP 113/64
[2017-04-07 04:15] VITALS: BP 98/55
[2017-04-07 05:09] LABS: HEMATOCRIT 20.9 % (42.0-52.0)
[2017-04-07 05:11] LABS: HEMOGLOBIN 6.9 gm/dL (14.0-18.0); MCH 29.6 pg (26.0-34.0); MCHC 32.9 g/dL (28.0-37.0); RBC 2.33 mil/uL (4.50-6.00); RDW 17.4 % (10.5-14.5); WBC 7.5 thou/uL (4.0-11.0)
[2017-04-07 05:24] LABS: CALCIUM 8.1 mg/dL (8.5-10.1); CREATININE 2.5 mg/dL (0.7-1.3); PHOSPHORUS 4.6 mg/dL (2.5-4.9)
[2017-04-07 05:25] LABS: ALBUMIN 2.8 g/dL (3.4-5.0); POTASSIUM 4.8 mmol/L (3.5-5.1)
[2017-04-07 07:45] VITALS: BP 103/63
[2017-04-07 14:56] VITALS: BP 122/64; BP 124/73
[2017-04-07 19:25] VITALS: BP 114/67
[2017-04-07 20:10] VITALS: BP 124/65
[2017-04-07 20:25] VITALS: BP 124/65; BP 127/60
[2017-04-08 00:31] VITALS: BP 124/65; BP 127/60; BP 139/75
[2017-04-08 04:44] LABS: HEMATOCRIT 27.2 % (42.0-52.0); MCH 29.4 pg (26.0-34.0); MCHC 33.1 g/dL (28.0-37.0); MCV 88.8 fL (80.0-100.0); RBC 3.07 mil/uL (4.50-6.00); RDW 17.2 % (10.5-14.5); WBC 8.6 thou/uL (4.0-11.0)
[2017-04-08 05:25] VITALS: BP 112/67
[2017-04-08 05:35] LABS: ALBUMIN 2.8 g/dL (3.4-5.0); CALCIUM 8.2 mg/dL (8.5-10.1); CREATININE 2.5 mg/dL (0.7-1.3); POTASSIUM 4.5 mmol/L (3.5-5.1)
[2017-04-08 07:52] LABS: ABSOLUTE RETIC COUNT 0.091 10^6/uL; OBSERVED RETIC COUNT 3.01 % (0.6-2.6)
[2017-04-08 08:00] VITALS: BP 131/73
[2017-04-08 15:00] VITALS: BP 140/79
[2017-04-08 19:32] VITALS: BP 124/78
[2017-04-09 04:14] VITALS: BP 130/50
[2017-04-09 07:33] VITALS: BP 103/54
[2017-04-09 09:55] VITALS: BP 103/54
[2017-04-09 15:10] VITALS: BP 114/66
[2017-04-09 20:23] VITALS: BP 135/65
[2017-04-10 05:07] VITALS: BP 149/68
[2017-04-10 06:53] LABS: HEMATOCRIT 27.6 % (42.0-52.0); HEMOGLOBIN 8.9 gm/dL (14.0-18.0); MCH 29.1 pg (26.0-34.0); MCHC 32.4 g/dL (28.0-37.0); MCV 89.8 fL (80.0-100.0); RBC 3.07 mil/uL (4.50-6.00); RDW 17.5 % (10.5-14.5); WBC 8.2 thou/uL (4.0-11.0)
[2017-04-10 07:09] LABS: CALCIUM 8.2 mg/dL (8.5-10.1); CREATININE 2.2 mg/dL (0.7-1.3); POTASSIUM 4.1 mmol/L (3.5-5.1)
[2017-04-10 08:34] VITALS: BP 114/66
[2017-04-10] MEDS ORDERED: AUGMENTIN 875875 MG PO (12:37)
[2017-04-10 12:42] VITALS: BP 103/54
== END 2017-04-10 15:27 | disposition home health service (06) | DRG 393 ==
LOC: ER 03:28 → EROBS 05:37 → 4E 05:37
PROVIDERS: Emergency Medicine; Hospitalist; Internal Medicine Hematology & Oncology
PROC: 30233N1 Transfusion of Nonautologous Red Blood Cells into Peripheral Vein, Percutaneous Approach (ICD-10-PCS; principal; 2017-04-07)
PROC: 0D568ZZ Destruction of Stomach, Via Natural or Artificial Opening Endoscopic (ICD-10-PCS; 2017-04-08)
DX: K94.11 Enterostomy hemorrhage (principal); E43 Unspecified severe protein-calorie malnutrition; K50.90 Crohn's disease, unspecified, without complications; L03.311 Cellulitis of abdominal wall; I13.0 Hypertensive heart and chronic kidney disease with heart failure and stage 1 through stage 4 chronic kidney disease, or unspecified chronic kidney disease; K92.1 Melena; N17.9 Acute kidney failure, unspecified; K31.819 Angiodysplasia of stomach and duodenum without bleeding; E11.22 Type 2 diabetes mellitus with diabetic chronic kidney disease; I48.91 Unspecified atrial fibrillation; N18.3 Chronic kidney disease, stage 3 (moderate); J44.9 Chronic obstructive pulmonary disease, unspecified; M10.9 Gout, unspecified; N40.0 Benign prostatic hyperplasia without lower urinary tract symptoms; I50.9 Heart failure, unspecified; G25.81 Restless legs syndrome; D50.9 Iron deficiency anemia, unspecified; F32.9 Major depressive disorder, single episode, unspecified; K21.9 Gastro-esophageal reflux disease without esophagitis; E03.9 Hypothyroidism, unspecified; E87.5 Hyperkalemia; I25.10 Atherosclerotic heart disease of native coronary artery without angina pectoris; G47.33 Obstructive sleep apnea (adult) (pediatric); Z79.82 Long term (current) use of aspirin; Z79.4 Long term (current) use of insulin; Z68.25 Body mass index [BMI] 25.0-25.9, adult; Z87.891 Personal history of nicotine dependence; Z98.61 Coronary angioplasty status; Z90.49 Acquired absence of other specified parts of digestive tract; Z98.42 Cataract extraction status, left eye; I25.2 Old myocardial infarction; Z88.8 Allergy status to other drugs, medicaments and biological substances; Z79.899 Other long term (current) drug therapy; Z91.048 Other nonmedicinal substance allergy status; Y83.8 Other surgical procedures as the cause of abnormal reaction of the patient, or of later complication, without mention of misadventure at the time of the procedure; Y82.8 Other medical devices associated with adverse incidents; Y92.89 Other specified places as the place of occurrence of the external cause
CPT/HCPCS: 10084; 62110; 62900; 70005